=== PATIENT | female | born 1965 | race Two or more races ===

== ENCOUNTER 2016-08-24 13:16 | Emergency (ER) | payer SELFPAY ==
[~2016-08-24] VITALS: Ht 154.9 cm; Wt 80.3 kg
[2016-08-24 17:24] LABS: Basophils # (auto) 0.1 uL; Basophils % (auto) 0.6 % (0.0-2.0); Eosinophils # (auto) 0.2 uL; Hematocrit 40.9 % (36.0-46.0); Hemoglobin 13.8 g/dL (12.2-16.2); Lymphocytes # (auto) 3.1 uL; Lymphocytes % (auto) 25.2 % (10.0-50.0); Mean Corpuscular Hemoglobin 31.1 pg (28.0-32.0); Mean Corpuscular Hgb Conc. 33.6 g/dL (32.0-36.0); Mean Corpuscular Volume 92.5 fL (80.0-100.0); Mean Platelet Volume 9.1 fL (7.4-10.4); Monocytes # (auto) 1.1 uL; Monocytes % (auto) 8.5 % (0.0-12.0); Neutrophils # (auto) 7.9 uL; Neutrophils % (auto) 63.7 % (37.0-80.0); Platelet Count (auto) 324 10^3/uL (140-450); White Blood Cell 12.4 10^3/uL (4.4-10.8)
[2016-08-24 17:53] LABS: Albumin 3.5 g/dL (3.4-5.0); BUN/Creatinine Ratio 17.2; Bilirubin, Total 0.5 mg/dL (0.2-1.0); Calcium 9.5 mg/dL (8.5-10.1); Potassium 3.9 mmol/L (3.5-5.1); Total Protein 8.4 g/dL (6.4-8.2)
[2016-08-24] MEDS ORDERED: ALBUTEROL SULF 2.5 MG/0.5ML(0.5%) NEB SOLN HHN STA (18:04)
[2016-08-24] MEDS ORDERED: IPRATROPIUM BROM 0.5 MG/2.5ML INH SOL NEB ONE (18:15)
[2016-08-24] MEDS ORDERED: LEVOFLOXACIN 500MG 100 ML IV ONE (18:15)
[2016-08-24 19:31] VITALS: BP 146/74
== END 2016-08-24 20:15 | disposition home or self-care (01) ==
LOC: ER 13:23
DX: J18.9 Pneumonia, unspecified organism (principal); J02.9 Acute pharyngitis, unspecified; I10 Essential (primary) hypertension
CPT/HCPCS: 36415; 71020; 80053; 83605; 85025; 85049; 87040; 93005; 94640; 94761; 96365; 99285; J1956

== ENCOUNTER 2017-04-08 21:54 | Inpatient (IN) | payer MEDICAID ==
[~2017-04-08] VITALS: Ht 154.9 cm; Wt 72.3 kg
[2017-04-08 22:32] LABS: CONDITION Y; Hematocrit 47.8 % (36.0-46.0); Hemoglobin 16.2 g/dL (12.2-16.2); Mean Corpuscular Hemoglobin 31.7 pg (28.0-32.0); Mean Corpuscular Volume 93.4 fL (80.0-100.0); Mean Platelet Volume 9.4 fL (7.4-10.4); Platelet Count (auto) 306 10^3/uL (140-450); White Blood Cell 19.4 10^3/uL (4.4-10.8)
[2017-04-08 22:38] LABS: Metamyelocytes % 0; Myelocytes % 0; Promyelocytes % 0; Reactive Lymphocytes 0
[2017-04-08 22:48] LABS: Albumin 4.2 g/dL (3.4-5.0); Amylase 57 U/L (25-115); Anion Gap 14 (5-15); Aspartate Aminotransferase 37 U/L (15-37); BUN/Creatinine Ratio 20.2; Blood Urea Nitrogen 20 mg/dL (7-18); Calcium 9.6 mg/dL (8.5-10.1); Carbon Dioxide 21 mmol/L (21-32); Chloride 106 mmol/L (98-107); GFR African American 75 mL/min; GFR Non-African American 62 mL/min; Glucose 168 mg/dL (74-106); Magnesium 2.2 mg/dL (1.6-2.6); Potassium 4.2 mmol/L (3.5-5.1); Sodium 141 mmol/L (136-145)
[2017-04-08 22:54] LABS: Alkaline Phosphatase 92 U/L (45-117); Bilirubin, Total 0.5 mg/dL (0.2-1.0); INR 0.95 (0.9-1.15); Partial Thromboplastin Time 23.3 sec (22.64-33.71); Prothrombin Time 10.4 sec (9.37-12.3); Total Protein 8.9 g/dL (6.4-8.2)
[2017-04-08 23:13] LABS: Platelet Estimate Adequate; RBC Morphology Normal
[2017-04-09] MEDS ORDERED: HYDROcodone-ACET 5/325MG TAB PO PRN (02:00)
[2017-04-09] MEDS ORDERED: LORazepam 0.5 MG TAB PO PRN (02:00)
[2017-04-09] MEDS ORDERED: MORPHINE SULF INJ 2 MG/ML SYRINGE 1ML IV PRN (02:00)
[2017-04-09] MEDS ORDERED: TEMAZEPAM 15 MG CAP PO PRN (02:00)
[2017-04-09] MEDS ORDERED: ACETAMINOPHEN 500 MG TAB PO PRN (02:00)
[2017-04-09] MEDS ORDERED: metroNIDAZOLE 500MG/100ML 100 ML IV ONE (02:00)
[2017-04-09] MEDS ORDERED: ONDANSETRON HCL 4 MG/2 ML VIAL IV PRN (02:00)
[2017-04-09] MEDS ORDERED: cefTRIAXone 1GM/50ML D5W 50 ML IV ONE (02:00)
[2017-04-09] MEDS: SODIUM CHLORIDE 0.9% 1,000 ML IV SCH ×2 (03:45→12:26)
[2017-04-09] MEDS: metroNIDAZOLE 500MG/100ML 100 ML IV SCH ×2 (06:00→14:00)
[2017-04-09 08:15] VITALS: BP 139/85
[2017-04-09] MEDS ORDERED: LISINOPRIL 10 MG TAB PO SCH (10:00)
[2017-04-09 12:38] VITALS: BP 143/79
[2017-04-09 16:52] LABS: Calcium 9.1 mg/dL (8.5-10.1); Potassium 3.8 mmol/L (3.5-5.1)
[2017-04-09 16:54] LABS: BUN/Creatinine Ratio 21.8
[2017-04-09 16:58] LABS: Basophils # (auto) 0 uL; Basophils % (auto) 0.2 % (0.0-2.0); CONDITION Y; Eosinophils # (auto) 0.1 uL; Eosinophils % (auto) 1.2 % (0.0-7.0); Hematocrit 45.4 % (36.0-46.0); Hemoglobin 15.3 g/dL (12.2-16.2); Lymphocytes # (auto) 3.3 uL; Lymphocytes % (auto) 34.7 % (10.0-50.0); Mean Corpuscular Hemoglobin 31.9 pg (28.0-32.0); Mean Corpuscular Hgb Conc. 33.8 g/dL (32.0-36.0); Mean Corpuscular Volume 94.4 fL (80.0-100.0); Mean Platelet Volume 9.7 fL (7.4-10.4); Monocytes # (auto) 0.8 uL; Monocytes % (auto) 8.2 % (0.0-12.0); Neutrophils # (auto) 5.3 uL; Neutrophils % (auto) 55.7 % (37.0-80.0); Platelet Count (auto) 278 10^3/uL (140-450); Red Cell Distribution Width 13.1 % (11.6-16.0); White Blood Cell 9.6 10^3/uL (4.4-10.8)
[2017-04-09 17:15] VITALS: BP 149/90
[2017-04-09 18:31] LABS: Urine RBC None Seen /hpf (0 - 4)
[2017-04-09 18:46] LABS: Urine Bilirubin Negative (Negative); Urine Blood Negative /uL (Negative); Urine Color Colorless (Yellow); Urine Glucose Normal (Normal); Urine Ketone Negative (Negative); Urine Nitrite Negative (Negative); Urine Squamous Epithelial Cell FEW /hpf (<5); Urine Urobilinogen Normal (Negative)
[2017-04-09 18:50] VITALS: BP 149/90
[2017-04-09] MEDS ORDERED: cefTRIAXone 1GM/50ML D5W 50 ML IV SCH (22:00)
== END 2017-04-09 20:00 | disposition home or self-care (01) | DRG 249 ==
LOC: ER 22:00 → OVERFLOW 22:01 → WEST WING 04-09 08:21
PROVIDERS: ADMIT Nurse Practitioner Family; ATTEND Internal Medicine
DX: K52.9 Noninfective gastroenteritis and colitis, unspecified (principal); I10 Essential (primary) hypertension; E11.9 Type 2 diabetes mellitus without complications; K57.90 Diverticulosis of intestine, part unspecified, without perforation or abscess without bleeding; D25.9 Leiomyoma of uterus, unspecified; E66.9 Obesity, unspecified; Z68.30 Body mass index [BMI] 30.0-30.9, adult; Z98.51 Tubal ligation status
CPT/HCPCS: 36415; 71010; 74176; 76705; 76856; 80048; 80053; 81001; 82150; 83036; 83605; 83690; 83735; 84484; 85007; 85025; 85027; 85610; 85730; 87040; 87086; 93005; 96361; 96365; 96367; 96368; J0696; J3490

== ENCOUNTER 2017-05-17 10:43 | Emergency (ER) | payer MEDICAID ==
[~2017-05-17] VITALS: Ht 152.4 cm; Wt 79.4 kg
[2017-05-17 11:14] VITALS: BP 144/96
[2017-05-17] MEDS ORDERED: cefTRIAXone SOD 1,000 MG VL IM ONE (12:15)
== END 2017-05-17 12:50 | disposition home or self-care (01) ==
LOC: ER 10:43
DX: J03.90 Acute tonsillitis, unspecified (principal); E11.9 Type 2 diabetes mellitus without complications; I10 Essential (primary) hypertension; F17.210 Nicotine dependence, cigarettes, uncomplicated; Z98.51 Tubal ligation status
CPT/HCPCS: 96372; 99283; J0696

== ENCOUNTER 2023-01-31 18:30 | Emergency (ER) | payer MEDICAID, OTHER ==
[~2023-01-31] VITALS: Ht 154.9 cm; Wt 77.3 kg
[2023-01-31 19:15] VITALS: BP 131/92
[2023-01-31] MEDS ORDERED: CEPH500C PO (21:04)
[2023-01-31] MEDS ORDERED: IBUP-1454 PO (21:04)
== END 2023-01-31 21:21 | disposition home or self-care (01) ==
LOC: ER 18:30
DX: S90.932A Unspecified superficial injury of left great toe, initial encounter (principal); E11.9 Type 2 diabetes mellitus without complications; I10 Essential (primary) hypertension; E78.5 Hyperlipidemia, unspecified; Z88.6 Allergy status to analgesic agent; X58.XXXA Exposure to other specified factors, initial encounter; Y93.89 Activity, other specified; Y92.89 Other specified places as the place of occurrence of the external cause; Y99.8 Other external cause status
CPT/HCPCS: 11730; 73630